=== PATIENT | female | born 1935 | race Caucasian/White ===

== ENCOUNTER → 2016-09-23 | Day surgery (SDC) | payer MEDICARE ==
--- NOTE | 2016-09-22 12:38 | History and Physical: Surg Cnt ---
History & Physical Date Sep 22, 2016. Chief Complaint nose bleeds History of Present Illness The patient is a 81 year old female with complaints of persistent ulceration right septum causing epistaxis Allergies Coded Allergies: No Known Allergies (Unverified , 07/12/14) Home Medications Scheduled Acetaminophen (Tylenol), 325 MG PO PRN Calcium Carbonate-Vitamin D (Calcium 500 + D), 1 TAB PO BID Citalopram Hydrobromide (Celexa), 20 MG PO QAM Cyanocobalamin (Vitamin B12), 2,000 PO QAM Esomeprazole Magnesium (Nexium), 40 MG PO QAM Fenofibrate Micronized (Fenofibrate), 134 MG PO QPM Lorazepam (Ativan), 2 MG PO PRN [place]-3 Fatty Acids (Fish Oil), 1 TAB PO BID Vitamin E (Vitamin E Complex), 1 TAB PO DAILY Diagnosis right septum with ulceration/epistaxis Plan of Treatment septodermoplasty, postauricular skin graft
[2016-09-22 15:45] VITALS: Ht 172.7 cm; Wt 78.2 kg
[~2016-09-23] VITALS: Ht 172.7 cm; Wt 78.2 kg
[~2016-09-23] MED LIST: AMOX875T PO; ATROPINE SULFATE 0.1 MG/ML 5ML SYR IV PRN; ATV2 PO; BACITRACIN OINT 15 GM TUBE ONE; CALCTAB65 PO; CITA10TA4 PO; EpHEDrine SULFATE INJ 50 MG/ML AMP IV PRN; FENO134C2 PO; FENTANYL CITRATE INJ 50 MCG/1 ML 2 ML VIAL IV PRN; FENTANYL CITRATE INJ 50 MCG/1 ML 2 ML VIAL ONE; FLUMAZENIL 0.1 MG/1 ML 10 ML VIAL IV PRN; GELATIN SPONGE 12-7MM ONE; HYDROCODONE/ACETAMOPHEN 5/325MG TAB PO PRN; HYDROmorphone INJ 2 MG/ML SYR/VIAL IV PRN; LABETALOL HCL IV 5 MG/ML 20ML IV PRN; LIDO 2%/EPINEPHRINE 1:100000 20 ML VIAL INFIL ONE; MEPERIDINE HCL 25 MG/ML CARP IV PRN; MIDAZOLAM HCL 1 MG/ML 2ML VIAL ONE; NALOXONE HCL 0.4 MG/1 ML VIAL/CARP IV PRN; OMEGCAP2 PO; ONDANSETRON INJ 2 MG/ML 2 ML VIAL IV PRN; OXYC-57 PO; PHENYLEPHRINE 100MCG/ML 5ML SYR IV PRN; PRLSR20 PO; SODIUM CHLORIDE 0.9% 1000ML 1,000 ML IV SCH; VITA-23 PO
--- NOTE | 2016-09-23 06:45 | History & Physical Bridge Note ---
H&P Re-Evaluation Bridge Note: I have examined the patient, reviewed the History & Physical and in the interval since the performance of the History & Physical I have noted the following changes of clinical significance: No changes noted
[2016-09-23] MEDS: TETRACAINE 4% TOPICAL SOLUTION TOP SCH ×4 (13:45→14:43)
--- NOTE | 2016-09-23 13:57 | Discharge Instructions-SurgCtr ---
Discharge Instructions Visit Reason for Visit: Ulceration Right Septum Discharge Discharge Diagnosis / Problem: same Discharge Goals Goal(s): Improve disease control Activity Recommendations Activity Limitations: resume your previous activity Anesthesia . Post Anesthesia Instructions: If you have had General Anesthesia or IV Sedation: * Do not drive today. * Resume driving when surgeon permits. * Do not make important decisions or sign legal documents today. * Call surgeon for: 1. Temperature elevations greater than 101 degrees F. 2. Uncontrollable pain. 3. Excessive bleeding. 4. Persistent nausea and vomiting. 5. Medication intolerance (nausea, vomiting or rash). * For nausea and vomiting use only clear liquids such as: tea, soda, bouillon until nausea subsides, then gradually increase diet as tolerated. * If you have any concerns or questions, call your surgeon's office. If physician is unavailable and it is an emergency, call 911 or go to the nearest emergency room. . Instructions / Follow-Up Instructions / Follow-Up ACTIVITY RECOMMENDATIONS: * Being up and around is good, but no strenuous activity, heavy lifting or physical exertion for one week. * Keep your head elevated 30 degrees when lying down or sleeping. * Do not blow your nose for 48 hours, sniff back instead. * Avoid hot showers. OVER THE COUNTER MEDICATIONS: * You may use Tylenol * Avoid aspirin or aspirin containing products, e.g. as they may increase bleeding. SPECIAL CARE INSTRUCTIONS: * Expect to have bloody drainage from your nose and/or down your throat for one to three days. Change drip pad as needed. * Begin irrigating your nose with saline solution today, at least six to ten times per day and sniff back to help remove old clots or crust. * You may experience nasal and facial congestion, pain and pressure, this is normal. * Please call with any significant and/or progressive pain, redness, swelling around the eyes, visual changes, fever of 101.5 degrees F, active bleeding or any problems or concerns. * If active bleeding occurs, spray the nose three times at one minute intervals with Afrin spray and call or cell phone: . If unable to reach the doctor, go to the nearest Emergency Department. Special Diet: * Avoid extremely hot fluids. FOLLOW UP VISIT: Follow-up Visit with Dr. Contreras If not already scheduled, please call to schedule.ACTIVITY RECOMMENDATIONS: * During the first few days, activities should be limited. * Stay indoors for several days. * After 48 hours, activity can gradually be increased to normal activity. RETURN TO SCHOOL/WORK: * Return to school or work in one week. * No physical education for two weeks. OVER THE COUNTER MEDICATIONS: * You may use Tylenol * Avoid aspirin or aspirin containing products, e.g. as they may increase bleeding. FOLLOW UP VISIT: Follow-up visit with Dr. Contreras in 2 weeks. Please call to schedule if not already scheduled. Diet Recommendations Home Diet: no limitations Pending Studies Studies pending at discharge: no Medical Emergencies . Who to Call and When: Medical Emergencies: If at any time you feel your situation is an emergency, please call [phone] immediately. . Non-Emergent Contact Non-Emergency issues call your: Primary Care Provider . . "Provider Documentation" section prepared by Gayle Contreras. [place] Drug Monitoring Program Search Results: no issues identified
--- NOTE | 2016-09-23 14:46 | OPERATIVE REPORT ---
DATE OF OPERATION: 09/23/2016 PREOPERATIVE DIAGNOSIS: Chronic ulceration, right septum. POSTOPERATIVE DIAGNOSIS: Same. PROCEDURE: Septodermoplasty with full thickness skin graft from behind the right ear of 1.1 cm diameter. SURGEON: Dr. Contreras. ANESTHESIA: Local with sedation. COMPLICATIONS: None. BLOOD LOSS: 10. HISTORY OF PRESENT ILLNESS: A 81-year-old lady with persistent ulceration with bleeding of the right septum. DESCRIPTION OF PROCEDURE: The patient brought to the operating room, placed in supine position, sedated, prepped with Betadine paint and draped in usual sterile manner. The postauricular area and the septum were injected with 2% Xylocaine with 1:100,000 strength epinephrine. The nose had previously been anesthetized using topical tetracaine. The postauricular incision was made in the postauricular crease in a curvilinear manner excising an elliptical piece of full thickness skin graft. This was closed with a continuous locking 4-0 nylon suture. Attention was turned to the nose. The area of ulceration on the right side of the septum was freshened with the suction and the skin edges lifted and the skin graft was trimmed to 1.1 cm diameter and placed into the ulceration/defect on the right side of the septum. This was sewn in place using a mattress suture of 4-0 plain gut sewing the graft in place. The Gelfoam packing was placed along the right side of the septum. The patient tolerated the procedure well and was taken to recovery area in satisfactory condition. I attest to the content of the Intraoperative Record and any orders documented therein. Any exceptio ns are noted below.
--- NOTE | 2016-09-23 15:17 | Anesthesia Progress Nt - [facility] ---
Anesthesia Post Op Note Date & Time Sep 23, 2016 at 15:17 Vital Signs Pain Intensity: 2.0 Vital Signs Past 12 Hours Date Time Temp Pulse Resp B/P Pulse Ox O2 Delivery O2 Flow Rate FiO2 09/23/16 14:44 36.4 80 20 147/91 96 Room Air 09/23/16 12:21 36.5 75 16 157/77 96 Room Air Notes Mental Status: alert / awake / arousable, participated in evaluation Pt Amnestic to Procedure: Yes Nausea / Vomiting: adequately controlled Pain: adequately controlled Airway Patency, RR, SpO2: stable & adequate BP & HR: stable & adequate Hydration State: stable & adequate Anesthetic Complications: no major complications apparent
[2016-09-23 15:24] VITALS: BP 160/72; PULSE 74; O2SAT 97
== END | disposition home or self-care (01) ==
LOC: X.SURG 11:22
PROVIDERS: ATTEND Otolaryngology
DX: R04.0 Epistaxis (principal); J34.89 Other specified disorders of nose and nasal sinuses; J34.0 Abscess, furuncle and carbuncle of nose